=== PATIENT | male | born 1965 | race Caucasian/White ===

== ENCOUNTER 2016-10-14 18:37 | Emergency (ER) | payer OTHER ==
[~2016-10-14] VITALS: Wt 93.0 kg
[2016-10-14] MEDS ORDERED: DAILY VALUE1 EACH PO (18:57)
== END 2016-10-14 19:11 | disposition left against medical advice (07) ==
LOC: ED 18:37
DX: S01.81XA Laceration without foreign body of other part of head, initial encounter (principal); V89.2XXA Person injured in unspecified motor-vehicle accident, traffic, initial encounter; Y93.89 Activity, other specified; Y92.413 State road as the place of occurrence of the external cause; Y99.9 Unspecified external cause status